=== PATIENT | male | born 1985 | race Caucasian/White ===

== ENCOUNTER 2016-07-02 22:36 | Emergency (ER) | payer OTHER ==
[2016-07-02 22:50] VITALS: BP 142/90; PULSE 76; TEMP 98.5; BMI 42.9
--- NOTE | 2016-07-03 00:55 | PDOC ---
History of Present Illness - General Chief Complaint: Pain, Acute Stated Complaint: FALL/INJURY Time Seen by Provider: 07/02/16 22:53 History Source: Patient, Other (Staff) Exam Limitations: No Limitations - History of Present Illness Initial Comments: 07/03/16 00:50 30yo Male patient presented to ED by staff from [facility] c/o fall w/ left elbow/ forearm injury. Patient states while trying to run up flight of stairs his hat fell off his head and he slipped on hat, falling onto stairs. He denies head, neck injury or LOC. Denies any other complaints at this time. Patient refused Tylenol or Motrin at this time. Upper Extremity Pain Location: left: forearm, elbow Method of Injury: reports: fell Modifying Factors: worse with: None, cold therapy, immobilization, pain medication, rest, other Associated Symptoms: None Extremity Pain Location - Extremity Pain Location Extremity Pain Locations: left: forearm (Decreased ROM), elbow (Decreased ROM) Past History - Travel Traveled outside of the country in the last 30 days: No Close contact w/someone who was outside of country & ill: No - Past Medical History Allergies/Adverse Reactions: Allergies Allergy/AdvReac Type Severity Reaction Status Date / Time No Known Allergies Allergy Verified 07/02/16 22:48 Home Medications: Ambulatory Orders Benztropine Mesylate [Cogentin -] 0.5 mg PO BID 07/02/16 Cholecalciferol (Vitamin D3) [Vitamin D3 -] 2,000 unit PO DAILY 07/02/16 Divalproex [Depakote -] 1,000 mg PO HS 07/02/16 Divalproex [Depakote -] 250 mg PO DAILY 07/02/16 Divalproex [Depakote -] 500 mg PO DAILY 07/02/16 Haloperidol [Haldol -] 2 mg PO BID 07/02/16 Lorazepam [Ativan] 0.5 mg PO BID 07/02/16 Propranolol HCl [Inderal] 40 mg PO BID 07/02/16 Risperidone [Risperdal] 3 mg PO DAILY 07/02/16 Sertraline HCl [Zoloft -] 150 mg PO DAILY 07/02/16 Psychiatric Problems: Yes (bipolar, MR, GERD,) - Psycho/Social/Smoking Cessation Hx Anxiety: No Suicidal Ideation: No Smoking Status: No Smoking History: Never smoked Have you smoked in the past 12 months: No Number of Cigarettes Smoked Daily: 0 Hx Alcohol Use: No Drug/Substance Use Hx: No Substance Use Type: None Review of Systems - Review of Systems Respiratory: No: Shortness of Breath, Stridor Cardiac (ROS): No: Chest Pain Musculoskeletal: Yes: Joint Pain, Other (Left forearm and elbow pain/tenderness. ). No: Back Pain Integumentary: No: Bruising, Erythema, Rash Neurological: No: Headache All Other Systems: Reviewed and Negative *Physical Exam - Vital Signs Last Vital Signs Temp Pulse Resp BP Pulse Ox 98.5 F 76 18 142/90 98 07/02/16 22:49 07/02/16 22:49 07/02/16 22:49 07/02/16 22:49 07/02/16 22:49 - Physical Exam General Appearance: Yes: Nourished, Appropriately Dressed. No: Apparent Distress, Mild Distress, Moderate Distress, Severe Distress Neck: positive: Trachea midline, Supple. negative: Rigid, Decreased range of motion, Stridor, Tender midline Respiratory/Chest: positive: Lungs Clear, Normal Breath Sounds. negative: Respiratory Distress, Accessory Muscle Use, Labored Respiration, Rapid RR, Rhonchi, Stridor, Wheezing Cardiovascular: positive: Regular Rhythm, Regular Rate. negative: Edema, JVD, Murmur Gastrointestinal/Abdominal: positive: Normal Bowel Sounds, Soft. negative: Increased Bowel Sounds, Distended, Guarding, Rebound, Tenderness Musculoskeletal: positive: Normal Inspection, Decreased Range of Motion (Left forearm/elbow. Passive ROM WNL). negative: CVA Tenderness Extremity: positive: Normal Capillary Refill, Normal Inspection. 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 negative: Motor Strength 5/5 ED Treatment Course - RADIOLOGY Radiology Studies Ordered: Category Date Time Status ELBOW-LEFT [RAD] Stat Radiology 07/02/16 23:44 Taken FOREARM- LEFT [RAD] Stat Radiology 07/02/16 23:44 Taken *DC/Admit/Observation/Transfer Diagnosis at time of Disposition: Injury of left lower arm Qualifiers: Encounter type: initial encounter Qualified Code(s): S59.912A - Unspecified injury of left forearm, initial encounter Fall Qualifiers: Encounter type: initial encounter Qualified Code(s): W19.XXXA - Unspecified fall, initial encounter - Discharge Dispostion Disposition: HOME Condition at time of disposition: Good Admit: No - Referrals Referrals: STAFF,NOT ON [Primary Care Provider] - Alfredo Flowers MD [Staff Physician] - - Patient Instructions Printed Discharge Instructions: How to Use a Sling, DI for Arm Pain Additional Instructions: FOLLOW UP WITH PRIMARY CARE PROVIDER THIS WEEK. CALL TO SCHEDULE APPOINTMENT. APPLY COLD COMPRESS EVERY 4 HOURS WHILE AWAKE FOR 15-20 MINS ON AND OFF NEEDED FOR PAIN. TYLENOL OR MOTRIN FOR PAIN. KEEP ARM IN SLING WHILE OUT OF BED. FOLLOW UP WITH DR. FLOWERS (ORTHOPEDIC) OR YOUR ORTHOPEDIC FOR FURTHER EVALUATION. Print Language: TURKISH
== END 2016-07-03 01:35 | disposition home or self-care (01) ==
LOC: JER 22:36
DX: S59.812A Other specified injuries left forearm, initial encounter (principal); W10.8XXA Fall (on) (from) other stairs and steps, initial encounter; Y93.02 Activity, running; Y92.89 Other specified places as the place of occurrence of the external cause; F31.9 Bipolar disorder, unspecified; F78 Other intellectual disabilities; K21.9 Gastro-esophageal reflux disease without esophagitis
CPT/HCPCS: 73070-TC-LT; 73090-TC-LT; 99282-25

== ENCOUNTER 2017-08-16 10:38 | Emergency (ER) | payer OTHER ==
[2017-08-16 10:53] VITALS: BP 130/67; PULSE 82; TEMP 97.5; BMI 42.7
--- NOTE | 2017-08-16 11:22 | PDOC ---
History of Present Illness - General Chief Complaint: Injury Stated Complaint: FALL Time Seen by Provider: 08/16/17 11:19 History Source: Patient, Care Provider Exam Limitations: No Limitations - History of Present Illness Initial Comments: 08/16/17 11:19 Pt. is a 31 y/o M with PMH of autism, OCD, who presents to the ED after falling off of a chair around 9am this morning. Pt. states he was standing on a chair to adjust the Wii sensor bar on his TV when he slipped and fell. He landed on his R shoulder. Pt. is right hand dominant. He states he also hit his head, and now has a bump on his R forehead. Denies LOC, light headedness, dizziness, n/v/d , changes in gait. Presents for evaluation of his shoulder pain and head. Past History - Travel Traveled outside of the country in the last 30 days: No Close contact w/someone who was outside of country & ill: No - Past Medical History Allergies/Adverse Reactions: Allergies Allergy/AdvReac Type Severity Reaction Status Date / Time No Known Allergies Allergy Verified 08/16/17 10:48 Home Medications: Ambulatory Orders Benztropine Mesylate [Cogentin -] 0.5 mg PO BID 07/02/16 Cholecalciferol (Vitamin D3) [Vitamin D3 -] 2,000 unit PO DAILY 07/02/16 Divalproex [Depakote -] 1,000 mg PO HS 07/02/16 Divalproex [Depakote -] 250 mg PO DAILY 07/02/16 Divalproex [Depakote -] 500 mg PO DAILY 07/02/16 Haloperidol [Haldol -] 2 mg PO BID 07/02/16 LORazepam [Ativan] 0.5 mg PO BID 07/02/16 Risperidone [Risperdal] 3 mg PO DAILY 07/02/16 Sertraline HCl [Zoloft -] 150 mg PO DAILY 07/02/16 propRANOLol HCL [Inderal] 40 mg PO BID 07/02/16 COPD: No Psychiatric Problems: Yes (bipolar, MR, GERD,) - Immunization History Immunization Up to Date: Yes - Suicide/Smoking/Psychosocial Hx Smoking Status: No Smoking History: Never smoked Have you smoked in the past 12 months: No Number of Cigarettes Smoked Daily: 0 Hx Alcohol Use: No Drug/Substance Use Hx: No Substance Use Type: None Review of Systems - Review of Systems Able to Perform ROS?: Yes Comments:: 08/16/17 11:47 CONSTITUTIONAL: Absent: fever, chills, diaphoresis, generalized weakness, malaise, loss of appetite GASTROINTESTINAL: Absent: abdominal pain, abdominal distension, nausea, vomiting, diarrhea, constipation, melena, hematochezia GENITOURINARY: Absent: dysuria, frequency, urgency, hesitancy, hematuria, flank pain, genital pain MUSCULOSKELETAL: Present: R shoulder pain Absent: myalgia, arthralgia, joint swelling SKIN: Present: bump to R forehead Absent: rash, itching, pallor NEUROLOGIC: Absent: LOC, headache, focal weakness or paresthesias, dizziness, unsteady gait , seizure, mental status changes, bladder or bowel incontinence Is the patient limited Indonesian proficient: No *Physical Exam - Vital Signs Last Vital Signs Temp Pulse Resp BP Pulse Ox 97.5 F L 82 18 130/67 96 08/16/17 10:48 08/16/17 10:48 08/16/17 10:48 08/16/17 10:48 08/16/17 10:48 - Physical Exam Comments: 08/16/17 11:49 GENERAL: Well developed, well nourished. Awake and alert. No acute distress. HEENT: Normocephalic, small hematoma 2cm round to R upper forehead. No barron sign, racoon sign. No step offs or crepitus felt. PERRLA, EOMI. No conjunctival pallor. Sclera are non-icteric. Moist mucous membranes. Oropharynx is clear. NECK: Supple. Full ROM. No JVD. Carotid pulses 2+ and symmetric, without bruits. No thyromegaly. No lymphadenopathy. MUSCULOSKELETAL Full ROM of R shoulder with mild pain with flexion and internal rotation of the shoulder. Normal range of motion at all joints. No bony deformities or tenderness. No CVA tenderness. EXTREMITIES: No cyanosis. No clubbing. No edema. No calf tenderness. SKIN: Warm and dry. Normal capillary refill. No rashes. No jaundice. NEUROLOGICAL: Alert, awake, appropriate. Cranial nerves 2-12 intact. No deficits to light touch and temperature in face, upper extremities and lower extremities. No motor deficits in the in face, upper extremities and lower extremities. Normoreflexic in the upper and lower extremities. Normal speech. Toes are down- going bilaterally. Gait is normal without ataxia. Medical Decision Making - Medical Decision Making 08/16/17 11:42 Patient is a 31 y/o M with PMH of autism, OCD, who presents to the ED s/p mechanical fall off of a chair. Neurologically intact. No obvious deformities on exam. Vital signs stable. Shoulder x-ray ordered. Wet read with no fracture or deformity. Will d.c home with strict return precautions. Sling given. Patient and healthcare liaison understand all discharge instructions and all questions were answered. *DC/Admit/Observation/Transfer Diagnosis at time of Disposition: Fall Qualifiers: Encounter type: initial encounter Qualified Code(s): W19.XXXA - Unspecified fall, initial encounter Shoulder pain, right Qualifiers: Chronicity: acute Qualified Code(s): M25.511 - Pain in right shoulder - Discharge Dispostion Disposition: HOME Condition at time of disposition: Stable Admit: No - Referrals Referrals: Alfredo Flowers MD [Staff Physician] - - Patient Instructions Printed Discharge Instructions: DI for Shoulder Pain Additional Instructions: Your x-ray today they did not show any broken bones. Please ice the shoulder and head for 20 minute periods with 20 minutes of rest in between to help reduce swelling and pain. You may take Tylenol 650 mg every 6 hours as needed for pain. Please follow-up with Dr. Flowers if your symptoms do not improve within a week. Return to the emergency department if you have headache, dizziness, lightheadedness, vomiting, changes in the way you walk, or have any changes in your symptoms. - Post Discharge Activity
== END 2017-08-16 12:15 | disposition home or self-care (01) ==
LOC: JERFT 10:38
DX: M25.511 Pain in right shoulder (principal); W07.XXXA Fall from chair, initial encounter; Y93.89 Activity, other specified; Y92.89 Other specified places as the place of occurrence of the external cause; F79 Unspecified intellectual disabilities; F31.9 Bipolar disorder, unspecified; K21.9 Gastro-esophageal reflux disease without esophagitis
CPT/HCPCS: 73030-TC-RT-FY; 99281-25

== ENCOUNTER 2021-09-01 14:44 | Emergency (ER) | payer OTHER ==
[2021-09-01 14:56] VITALS: BP 131/65; PULSE 84; TEMP 98; BMI 32.3
[2021-09-01] MEDS ORDERED: ACETAMINOPHEN 500 MG TABLET (FP) PO ONE (15:21)
[2021-09-01] MEDS ORDERED: ACETAMINOPHEN 500 MG TABLET (FP) ONE (15:38)
== END 2021-09-01 15:45 | disposition home or self-care (01) ==
LOC: JERFT 14:44
DX: M20.011 Mallet finger of right finger(s) (principal)
CPT/HCPCS: 73140-TC-RT-FY; 99283-25

== ENCOUNTER 2024-02-19 19:04 | Emergency (ER) | payer OTHER ==
[2024-02-19 19:29] VITALS: BP 145/83; PULSE 86; RESP 17; TEMP 97.7; BMI 22.6
[2024-02-19] MEDS ORDERED: ACETAMINOPHEN INJECTION 100 ML ONE (19:50)
[2024-02-19] MEDS ORDERED: FAMOTIDINE 20 MG/50 ML IVPB 20 MG/50 ML MG IVPB ONE (19:50)
[2024-02-19] MEDS: FAMOTIDINE 20 MG/50 ML IVPB 20 MG/50 ML MG IVPB ONE (20:26)
[2024-02-19 20:30] LABS: HEMATOCRIT 44.2 % (35.4-49); HEMOGLOBIN 14.4 GM/dL (11.7-16.9); MCHC 32.5 g/dl (32.0-35.9); MEAN CELL VOLUME 83.3 fl (80-96); MEAN PLT VOLUME 9.8 fl (7.5-11.1); PLATELET COUNT 190 10^3/uL (134-434); RBC 5.31 M/mm3 (4.00-5.60); RDW 17.9 % (11.9-15.9); WHITE BLOOD COUNT 11.9 K/mm3 (4.0-10.0)
[2024-02-19] MEDS: ACETAMINOPHEN 1000 MG/100 ML BAG IVPB ONE (20:42)
[2024-02-19] MEDS: SODIUM CHLORIDE 1,000 ML IV STA (20:43)
[2024-02-19 20:50] LABS: ALBUMIN 3.8 g/dl (3.4-5.0); BLOOD UREA NITROGEN 16.1 mg/dL (7-18)
[2024-02-19 20:53] LABS: CREATININE 0.8 mg/dL (0.55-1.3)
[2024-02-19 20:55] LABS: BILIRUBIN,TOTAL 0.2 mg/dL (0.2-1); TOT PROT 8.2 g/dl (6.4-8.2)
[2024-02-19] MEDS ORDERED: MAG HYDROX/AL HYDROX/SIMETH 30 ML UNIT-DOSE CUP ONE (21:52)
[2024-02-19] MEDS: MAG HYDROX/AL HYDROX/SIMETH 30 ML UNIT-DOSE CUP PO ONE (21:54)
== END 2024-02-19 22:42 | disposition home or self-care (01) ==
LOC: JER 19:04
PROC: 3E033GC Introduction of Other Therapeutic Substance into Peripheral Vein, Percutaneous Approach (ICD-10-PCS; principal; 2024-02-19)
PROC: 3E033NZ Introduction of Analgesics, Hypnotics, Sedatives into Peripheral Vein, Percutaneous Approach (ICD-10-PCS; 2024-02-19)
PROC: 3E033GC Introduction of Other Therapeutic Substance into Peripheral Vein, Percutaneous Approach (ICD-10-PCS; 2024-02-19)
PROC: 3E0337Z Introduction of Electrolytic and Water Balance Substance into Peripheral Vein, Percutaneous Approach (ICD-10-PCS; 2024-02-19)
DX: R07.2 Precordial pain (principal); Z20.822 Contact with and (suspected) exposure to COVID-19
CPT/HCPCS: 0241U-QW; 36415; 80053; 84443; 84484; 85027; 93005; 93010; 99284-25; J0131

== ENCOUNTER 2024-11-15 14:44 | Emergency (ER) | payer OTHER ==
[2024-11-15 14:52] VITALS: RESP 18; BMI 30.7
[2024-11-15] MEDS ORDERED: IBUPROFEN 400 MG TABLET (FP) PO ONE (15:42)
[2024-11-15] MEDS: IBUPROFEN 400 MG TABLET (FP) PO ONE (15:53)
[2024-11-15 16:50] VITALS: BP 119/79; PULSE 73; TEMP 98.1
== END 2024-11-15 17:00 | disposition home or self-care (01) ==
LOC: JERFT 14:44
DX: S93.491A Sprain of other ligament of right ankle, initial encounter (principal); X50.1XXA Overexertion from prolonged static or awkward postures, initial encounter; Y93.83 Activity, rough housing and horseplay
CPT/HCPCS: 73610-TC-RT-FY; 73630-TC-RT-FY; 99283-25